=== PATIENT | male | born 1950 | race African-American/Black ===

== ENCOUNTER 2021-04-06 16:40 | Emergency (ER) | payer SELFPAY ==
[2021-04-06 19:03] VITALS: BP 168/73
== END 2021-04-06 19:05 | disposition left against medical advice (07) ==
LOC: ER 16:40
DX: Z04.1 Encounter for examination and observation following transport accident (principal); Z53.21 Procedure and treatment not carried out due to patient leaving prior to being seen by health care provider

== ENCOUNTER 2021-04-08 07:45 | Emergency (ER) | payer OTHER ==
[~2021-04-08] VITALS: Ht 182.9 cm; Wt 105.9 kg
[2021-04-08] MEDS ORDERED: METHOCARBAMOL 750 MG TABLET PO ONE (08:45)
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
[2021-04-08] MEDS ORDERED: METH-561 PO (09:48)
[2021-04-08 10:10] VITALS: BP 152/80
== END 2021-04-08 10:11 | disposition home or self-care (01) ==
LOC: ER 07:45
DX: S13.9XXA Sprain of joints and ligaments of unspecified parts of neck, initial encounter (principal); M17.0 Bilateral primary osteoarthritis of knee; M25.511 Pain in right shoulder; M25.512 Pain in left shoulder; Z87.891 Personal history of nicotine dependence; V49.59XA Passenger injured in collision with other motor vehicles in traffic accident, initial encounter; Y93.89 Activity, other specified; Y92.488 Other paved roadways as the place of occurrence of the external cause; Y99.8 Other external cause status
CPT/HCPCS: 72125; 73590-50; 99284-25